=== PATIENT | female | born 1950 | race Caucasian/White ===

== ENCOUNTER 2017-11-22 06:20 | Emergency (ER) | payer OTHER ==
[2017-11-22 06:20] VITALS: BP 135/63; PULSE 85; RESP 16; TEMP 98; O2SAT 100
[~2017-11-22 06:20] MED LIST: ANAS1 PO; CYCL-36 PO; TAB-TAB PO; TRAM50 PO
[2017-11-22] MEDS ORDERED: AMLO2.5T PO (06:40)
[2017-11-22] MEDS ORDERED: ADVA100A INH (06:40)
[2017-11-22] MEDS ORDERED: VENTAER INH (06:40)
[2017-11-22] MEDS ORDERED: ONDANSETRON HCL 4 MG/2 ML VIAL ONE (06:42)
[2017-11-22] MEDS ORDERED: SODIUM CHLOR 0.9% 1000 ML INJ 1,000 ML IV ONE (07:00)
[2017-11-22] MEDS ORDERED: ONDANSETRON HCL 4 MG/2 ML VIAL IV PUSH ONE (07:00)
[2017-11-22 07:09] LABS: AUTOMATED NEUTROPHIL # 7.7 TH/MM3 (1.8-7.7); BASOPHIL % 0.3 % (0.0-2.0); EOSINOPHIL # 0.1 TH/MM3 (0-0.4); EOSINOPHIL % 0.7 % (0.0-4.0); HEMATOCRIT 42.4 % (35.0-46.0); HEMOGLOBIN 14.8 GM/DL (11.6-15.3); LYMPH % 4.4 % (9.0-44.0); LYMPHOCYTE # 0.4 TH/MM3 (1.0-4.8); MEAN CELL VOLUME 91.6 FL (80.0-100.0); MEAN CORPUSCULAR HEMOGLOBIN 32.1 PG (27.0-34.0); MEAN PLATELET VOLUME 8.4 FL (7.0-11.0); MONO % 4.8 % (0.0-8.0); MONOCYTE # 0.4 TH/MM3 (0-0.9); NEUT % 89.8 % (16.0-70.0); PLATELET COUNT 224 TH/MM3 (150-450); RED BLOOD COUNT 4.63 MIL/MM3 (4.00-5.30); WHITE BLOOD COUNT 8.5 TH/MM3 (4.0-11.0)
[2017-11-22 07:28] LABS: ALBUMIN 4.1 GM/DL (3.4-5.0); AST (GOT) 27 U/L (15-37); BICARBONATE 25.1 MEQ/L (21.0-32.0); BLOOD UREA NITROGEN 15 MG/DL (7-18); CALCIUM 8.9 MG/DL (8.5-10.1); CHLORIDE 106 MEQ/L (98-107); CREATININE 0.78 MG/DL (0.50-1.00); GLOMERULAR FILTRATION RATE 73 ML/MIN (>89); GLUCOSE,RANDOM 128 MG/DL (74-106); SODIUM (NA) 139 MEQ/L (136-145)
[2017-11-22 07:30] VITALS: O2SAT 96
[2017-11-22 07:31] LABS: ALKALINE PHOSPHATASE 85 U/L (45-117); ALT (GPT) 29 U/L (10-53); TOTAL BILIRUBIN ADULT 0.9 MG/DL (0.2-1.0); TOTAL PROTEIN 8.5 GM/DL (6.4-8.2)
[2017-11-22 08:41] LABS: BILIRUBIN, URINE NEG (NEG); BLOOD, URINE NEG (NEG); GLUCOSE,URINE NEG (NEG); KETONE, URINE TRACE mg/dL (NEG); MUCUS URINE FEW /lpf (OCC); NITRITE,URINE NEG (NEG); PH, URINE 5.5 (5.0-8.5); SQUAMOUS EPITHELIAL CELL URINE <1 /hpf (0-5); URINE COLOR YELLOW (YELLW/STRAW); URINE LEUKOCYTE ESTERASE NEG (NEG)
[2017-11-22] MEDS ORDERED: DICYCLOMINE HCL 10 MG CAP PO ONE (09:00)
[2017-11-22] MEDS ORDERED: DICY10 PO (09:04)
--- NOTE | 2017-11-22 09:04 | PD ---
Physical Exam Narrative Patient signed out to me by Dr. Andersen. Please see her documentation for complete details. Briefly, patient is a 66 year old female who comes in complaining of nausea, vomiting, diarrhea that started this morning around 2AM. The last thing she ate was fish at a restaurant. Exam shows abdomen to be soft and nontender. Data Data Last Documented VS Vital Signs Date Time Temp Pulse Resp B/P (MAP) Pulse Ox O2 Delivery O2 Flow Rate FiO2 11/22/17 06:20 98.0 85 16 135/63 (87) 100 Room Air Orders Orders Ondansetron Inj (Zofran Inj) (11/22/17 06:42) Complete Blood Count With Diff (11/22/17 06:47) Comprehensive Metabolic Panel (11/22/17 06:47) Urinalysis - C+S If Indicated (11/22/17 06:47) Iv Access Insert/Monitor (11/22/17 06:47) Oxygen Administration (11/22/17 06:47) Oximetry (11/22/17 06:47) Lipase (11/22/17 06:47) Influenzae A/B Antigen (11/22/17 06:47) Ondansetron Inj (Zofran Inj) (11/22/17 07:00) Sodium Chlor 0.9% 1000 Ml Inj (Ns 1000 M (11/22/17 07:00) Dicyclomine (Bentyl) (11/22/17 09:00) Labs Laboratory Tests Test 11/22/17 06:56 11/22/17 08:20 White Blood Count 8.5 TH/MM3 Red Blood Count 4.63 MIL/MM3 Hemoglobin 14.8 GM/DL Hematocrit 42.4 % Mean Corpuscular Volume 91.6 FL Mean Corpuscular Hemoglobin 32.1 PG Mean Corpuscular Hemoglobin Concent 35.0 % Red Cell Distribution Width 13.0 % Platelet Count 224 TH/MM3 Mean Platelet Volume 8.4 FL Neutrophils (%) (Auto) 89.8 % Lymphocytes (%) (Auto) 4.4 % Monocytes (%) (Auto) 4.8 % Eosinophils (%) (Auto) 0.7 % Basophils (%) (Auto) 0.3 % Neutrophils # (Auto) 7.7 TH/MM3 Lymphocytes # (Auto) 0.4 TH/MM3 Monocytes # (Auto) 0.4 TH/MM3 Eosinophils # (Auto) 0.1 TH/MM3 Basophils # (Auto) 0.0 TH/MM3 CBC Comment DIFF FINAL Differential Comment Blood Urea Nitrogen 15 MG/DL Creatinine 0.78 MG/DL Random Glucose 128 MG/DL Total Protein 8.5 GM/DL Albumin 4.1 GM/DL Calcium Level 8.9 MG/DL Alkaline Phosphatase 85 U/L Aspartate Amino Transf (AST/SGOT) 27 U/L Alanine Aminotransferase (ALT/SGPT) 29 U/L Total Bilirubin 0.9 MG/DL Sodium Level 139 MEQ/L Potassium Level 4.0 MEQ/L Chloride Level 106 MEQ/L Carbon Dioxide Level 25.1 MEQ/L Anion Gap 8 MEQ/L Estimat Glomerular Filtration Rate 73 ML/MIN Lipase 174 U/L Urine Color YELLOW Urine Turbidity CLEAR Urine pH 5.5 Urine Specific [place] 1.017 Urine Protein NEG mg/dL Urine Glucose (UA) NEG mg/dL Urine Ketones TRACE mg/dL Urine Occult Blood NEG Urine Nitrite NEG Urine Bilirubin NEG Urine Urobilinogen LESS THAN 2.0 MG/DL Urine Leukocyte Esterase NEG Urine RBC 1 /hpf Urine WBC LESS THAN 1 /hpf Urine Squamous Epithelial Cells <1 /hpf Urine Mucus FEW /lpf Microscopic Urinalysis Comment CULT NOT INDICATED MDM Supervised Visit with NICHOLAS: No Narrative Course Patient is requesting something for cramping. She is feeling better after receiving fluids and Zofran. She is able to drink water without vomiting. Labs show no acute abnormalities. She will be discharged home with prescription for Bentyl. Advised to drink plenty of fluids. Advised to eat a bland diet if she is feeling hungry. Advised to return at any time for any worsening symptoms. Diagnosis Primary Impression: Nausea, vomiting and diarrhea Patient Instructions: Acute Nausea and Vomiting (ED), General Instructions Additional Instruction: Follow-up with your doctor. Drink plenty of fluids. Eat a bland diet if you are feeling hungry. Return to the ED as needed for any worsening symptoms. Scripts Dicyclomine (Bentyl) 10 Mg Cap 10 MG PO TID Y for Bowel Management for 5 Days, CAP 0 Refills Prov: Marielle Cohen MD 11/22/17 Disposition: DISCHARGE HOME Condition: Stable Marielle Cohen MD Nov 22, 2017 09:04
--- NOTE | 2017-12-04 22:04 | PD ---
HPI Chief Complaint: GI Complaint Time Seen by Provider: 07:00 Travel History International Travel<30 days: No Contact w/Intl Traveler<30days: No Traveled to known affect area: No History of Present Illness HPI 66-year-old female presents to the emergency department for evaluation of nausea vomiting diarrhea and crampy abdominal pain since 2 AM. Patient reports did eat fish last evening denies any other known dietary indiscretion well water ingestion or foreign travel. Patient does not report any hematemesis coffee-ground emesis melena or hematochezia. Patient is otherwise in fair health has prior history of anxiety breast cancer with left breast lumpectomy with radiation therapy anxiety GI issues and asthma. Patient had no fever or chills. Patient complains of ongoing nausea and multiple episodes of vomiting. Status post previous appendectomy. Pain is intermittent and crampy in nature 0/10-5/10 in intensity. No report of dysuria frequency urgency hematuria or flank pain. PFSH Past Medical History Narrative Medical Anxiety asthma GI issues left breast lumpectomy radiation therapy appendectomy tonsillectomy occasional alcohol use no tobacco use nursing notes reviewed Asthma: Yes Anxiety: Yes Cancer: Yes (BREAST) Gastrointestinal Disorders: Yes GERD: Yes Hiatal Hernia: Yes Radiation Therapy: Yes (LEFT BREAST) Menopausal: Yes Past Surgical History Appendectomy: Yes Genitourinary Surgery: Yes (LEFT BREAST LUMPECTOMY) Tonsillectomy: Yes Other Surgery: Yes (LEFT BREAST LUMPECTOMY) Social History Alcohol Use: Yes (WEEKENDS) Tobacco Use: No Substance Use: No Allergies-Medications (Allergen,Severity, Reaction): Coded Allergies: cephalexin (Unverified Allergy, Severe, HIVES, 11/22/17) epinephrine (Unverified Allergy, Severe, HEART PALPITATIONS, 11/22/17) Reported Meds & Prescriptions Reported Meds & Active Scripts Active Bentyl (Dicyclomine HCl) 10 Mg Cap 10 Mg PO TID PRN 5 Days Reported Amlodipine (Amlodipine Besylate) 2.5 Mg Tab 2.5 Mg PO DAILY Advair Diskus Inh (Fluticasone-Salmeterol Inh) 100-50 Mcg/Blist Aer 1 Puff INH BID Rinse mouth after use. Ventolin Hfa 18 GM Inh (Albuterol Sulfate) 90 Mcg/Act Aer 2 Puff INH Q4-6H PRN Review of Systems Except as stated in HPI: all other systems reviewed are Neg Physical Exam Narrative GENERAL: Well-developed well-nourished female no acute respiratory distress. SKIN: Warm and dry. HEAD: Normocephalic. EYES: No scleral icterus. No injection or drainage. NECK: Supple, trachea midline. No JVD or lymphadenopathy. CARDIOVASCULAR: Regular rate and rhythm without murmurs, gallops, or rubs. RESPIRATORY: Breath sounds equal bilaterally. No accessory muscle use. GASTROINTESTINAL: Abdomen soft, non-tender, nondistended. MUSCULOSKELETAL: No cyanosis, or edema. BACK: Nontender without obvious deformity. No CVA tenderness. Data Data Orders Orders Ondansetron Inj (Zofran Inj) (11/22/17 06:42) Complete Blood Count With Diff (11/22/17 06:47) Comprehensive Metabolic Panel (11/22/17 06:47) Urinalysis - C+S If Indicated (11/22/17 06:47) Iv Access Insert/Monitor (11/22/17 06:47) Oxygen Administration (11/22/17 06:47) Oximetry (11/22/17 06:47) Lipase (11/22/17 06:47) Influenzae A/B Antigen (11/22/17 06:47) Ondansetron Inj (Zofran Inj) (11/22/17 07:00) Sodium Chlor 0.9% 1000 Ml Inj (Ns 1000 M (11/22/17 07:00) Dicyclomine (Bentyl) (11/22/17 09:00) Ed Discharge Order (11/22/17 09:04) Labs Laboratory Tests Test 11/22/17 06:56 11/22/17 08:20 White Blood Count 8.5 TH/MM3 Red Blood Count 4.63 MIL/MM3 Hemoglobin 14.8 GM/DL Hematocrit 42.4 % Mean Corpuscular Volume 91.6 FL Mean Corpuscular Hemoglobin 32.1 PG Mean Corpuscular Hemoglobin Concent 35.0 % Red Cell Distribution Width 13.0 % Platelet Count 224 TH/MM3 Mean Platelet Volume 8.4 FL Neutrophils (%) (Auto) 89.8 % Lymphocytes (%) (Auto) 4.4 % Monocytes (%) (Auto) 4.8 % Eosinophils (%) (Auto) 0.7 % Basophils (%) (Auto) 0.3 % Neutrophils # (Auto) 7.7 TH/MM3 Lymphocytes # (Auto) 0.4 TH/MM3 Monocytes # (Auto) 0.4 TH/MM3 Eosinophils # (Auto) 0.1 TH/MM3 Basophils # (Auto) 0.0 TH/MM3 CBC Comment DIFF FINAL Differential Comment Blood Urea Nitrogen 15 MG/DL Creatinine 0.78 MG/DL Random Glucose 128 MG/DL Total Protein 8.5 GM/DL Albumin 4.1 GM/DL Calcium Level 8.9 MG/DL Alkaline Phosphatase 85 U/L Aspartate Amino Transf (AST/SGOT) 27 U/L Alanine Aminotransferase (ALT/SGPT) 29 U/L Total Bilirubin 0.9 MG/DL Sodium Level 139 MEQ/L Potassium Level 4.0 MEQ/L Chloride Level 106 MEQ/L Carbon Dioxide Level 25.1 MEQ/L Anion Gap 8 MEQ/L Estimat Glomerular Filtration Rate 73 ML/MIN Lipase 174 U/L Urine Color YELLOW Urine Turbidity CLEAR Urine pH 5.5 Urine Specific [place] 1.017 Urine Protein NEG mg/dL Urine Glucose (UA) NEG mg/dL Urine Ketones TRACE mg/dL Urine Occult Blood NEG Urine Nitrite NEG Urine Bilirubin NEG Urine Urobilinogen LESS THAN 2.0 MG/DL Urine Leukocyte Esterase NEG Urine RBC 1 /hpf Urine WBC LESS THAN 1 /hpf Urine Squamous Epithelial Cells <1 /hpf Urine Mucus FEW /lpf Microscopic Urinalysis Comment CULT NOT INDICATED MDM Medical Decision Making Medical Screen Exam Complete: Yes Emergency Medical Condition: Yes Medical Record Reviewed: Yes Differential Diagnosis Gastritis, gastroenteritis, foodborne illness, dehydration, electrolyte disturbance, colitis, enteritis Narrative Course IV access obtained specimens collected and sent for resulting patient given bolus of normal saline and Zofran for complaint of nausea vomiting. Patient's care signed over oncoming physician Dr. Cohen Diagnosis Primary Impression: Nausea, vomiting and diarrhea Patient Instructions: General Instructions, Dicyclomine (By mouth), Acute Nausea and Vomiting (ED) Departure Forms: Tests/Procedures Additional Instructions: Follow-up with your doctor. Drink plenty of fluids. Eat a bland diet if you are feeling hungry. Return to the ED as needed for any worsening symptoms. Scripts Dicyclomine (Bentyl) 10 Mg Cap 10 MG PO TID Y for Bowel Management for 5 Days, CAP 0 Refills Prov: Marielle Cohen MD 11/22/17 Disposition: 01 DISCHARGE HOME Condition: Stable Mercedes Andersen MD Dec 04, 2017 22:04
== END 2017-11-22 09:48 | disposition home or self-care (01) ==
LOC: NEPC 06:20
DX: R11.2 Nausea with vomiting, unspecified (principal); R19.7 Diarrhea, unspecified; J45.909 Unspecified asthma, uncomplicated; R10.9 Unspecified abdominal pain
CPT/HCPCS: 80053; 81001; 83690; 85025; 87804; 96361; 96374; 99284; J2405; J7030

== ENCOUNTER 2018-01-28 22:18 | Observation (INO) | payer OTHER ==
[~2018-01-28 22:18] MED LIST changes: +ADVA100A INH; +AMLO2.5T PO; -ANAS1 PO; -CYCL-36 PO; +DICY10 PO; -TAB-TAB PO; -TRAM50 PO; +VENTAER INH
[2018-01-28 22:20] VITALS: BP 196/94; PULSE 84; RESP 18; TEMP 97.8; O2SAT 99
[2018-01-28 22:39] VITALS: BP 182/82; PULSE 78; RESP 16; O2SAT 98
[2018-01-28] MEDS ORDERED: GLUC100013 (22:39)
[2018-01-28 23:00] VITALS: BP 164/79; PULSE 78; RESP 16; O2SAT 100
[2018-01-28 23:20] LABS: AUTOMATED NEUTROPHIL # 3.2 TH/MM3 (1.8-7.7); BASOPHIL # 0.1 TH/MM3 (0-0.2); BASOPHIL % 1.1 % (0.0-2.0); EOSINOPHIL # 0.3 TH/MM3 (0-0.4); EOSINOPHIL % 4.1 % (0.0-4.0); HEMATOCRIT 37.2 % (35.0-46.0); HEMOGLOBIN 12.8 GM/DL (11.6-15.3); LYMPH % 33.6 % (9.0-44.0); LYMPHOCYTE # 2.2 TH/MM3 (1.0-4.8); MEAN CELL VOLUME 90.7 FL (80.0-100.0); MEAN CORPUSCULAR HEMOGLOBIN 31.1 PG (27.0-34.0); MEAN CORPUSCULAR HGB CONC 34.3 % (32.0-36.0); MEAN PLATELET VOLUME 9.2 FL (7.0-11.0); MONOCYTE # 0.8 TH/MM3 (0-0.9); NEUT % 49.2 % (16.0-70.0); PLATELET COUNT 203 TH/MM3 (150-450); RED BLOOD COUNT 4.11 MIL/MM3 (4.00-5.30); RED CELL DISTRIBUTION WIDTH 12.8 % (11.6-17.2); WHITE BLOOD COUNT 6.5 TH/MM3 (4.0-11.0)
[2018-01-28 23:32] LABS: BILIRUBIN, URINE NEG (NEG); BLOOD, URINE NEG (NEG); GLUCOSE,URINE NEG (NEG); KETONE, URINE NEG (NEG); NITRITE,URINE NEG (NEG); SQUAMOUS EPITHELIAL CELL URINE <1 /hpf (0-5); URINE COLOR COLORLESS (YELLW/STRAW); URINE LEUKOCYTE ESTERASE NEG (NEG)
--- NOTE | 2018-01-28 23:38 | RADRPT ---
EXAM DATE/TIME: 01/28/2018 23:15 [facility] COMPARISON: No previous studies available for comparison. INDICATIONS : Chest pain. MEDICAL HISTORY : Carcinoma, lung. SURGICAL HISTORY : Lobectomy. ENCOUNTER: Initial ACUITY: 1 day PAIN SCORE: 4/10 LOCATION: Bilateral chest FINDINGS: A single view of the chest demonstrates elevation of the right hemidiaphragm. Linear atelectasis/scar ring in the right upper lung. Lungs are otherwise clear with no acute infiltrate or effusion. Heart s ize is normal. Osseous structures are intact. CONCLUSION: 1. Linear atelectasis/scarring in the right upper lung. Lungs otherwise clear. 2. Heart size is normal Ernie Cardona MD on January 28, 2018 at 23:35 Board Certified Radiologist. This report was verified electronically.
[2018-01-29 00:01] LABS: ALBUMIN 3.8 GM/DL (3.4-5.0); ALKALINE PHOSPHATASE 86 U/L (45-117); ALT (GPT) 25 U/L (10-53); AST (GOT) 30 U/L (15-37); BICARBONATE 26.8 MEQ/L (21.0-32.0); BLOOD UREA NITROGEN 18 MG/DL (7-18); CHLORIDE 108 MEQ/L (98-107); CREATININE 0.82 MG/DL (0.50-1.00); GLOMERULAR FILTRATION RATE 69 ML/MIN (>89); GLUCOSE,RANDOM 113 MG/DL (74-106); SODIUM (NA) 143 MEQ/L (136-145); TOTAL BILIRUBIN ADULT 0.2 MG/DL (0.2-1.0); TOTAL PROTEIN 7.4 GM/DL (6.4-8.2); TROPONIN I LESS THAN 0.02 NG/ML (0.02-0.05)
[2018-01-29] MEDS ORDERED: POTASSIUM CHLORIDE 20 MEQ CONTROLLED RELEASE TAB PO ONE (00:30)
[2018-01-29] MEDS ORDERED: ACETAMINOPHEN 325 MG TAB PO PRN (00:45)
[2018-01-29] MEDS ORDERED: SENNOSIDES 8.6 MG TAB PO PRN (00:45)
[2018-01-29] MEDS ORDERED: NALOXONE HCL 0.4 MG/ML AMP IV PUSH PRN (00:45)
[2018-01-29] MEDS ORDERED: MAGNESIUM HYDROXIDE SUSP 30 ML CUP PO PRN (00:45)
[2018-01-29] MEDS ORDERED: LACTULOSE SYRUP 20 GM/30 ML CUP PO PRN (00:45)
[2018-01-29] MEDS ORDERED: DICYCLOMINE HCL 10 MG CAP PO PRN (00:45)
[2018-01-29] MEDS ORDERED: SODIUM CHLORIDE 0.9% FLUSH 10 ML FLUSH IV FLUSH PRN (00:45)
[2018-01-29] MEDS ORDERED: ALBUTEROL SULFATE 90 MCG/ACT HFA 8 GM INHALER INH PRN (00:45)
[2018-01-29] MEDS ORDERED: BISACODYL 10 MG SUPP RECTAL PRN (00:45)
--- NOTE | 2018-01-29 00:50 | PD ---
HPI Chief Complaint: Respiratory Symptoms Time Seen by Provider: 23:01 Travel History International Travel<30 days: No Contact w/Intl Traveler<30days: No Traveled to known affect area: No History of Present Illness HPI Patient presents to the emergency department complaining of fluttering in her chest. States that she has had this intermittently previously and go away however this week became more intense. Palpitations have been intermittent but she denies them currently. No chest pain but she does have shortness of breath. States that she also has a dry cough and is getting over respiratory infection for which she was placed on a Z-Jaswant approximately 2 weeks ago denies fever, chills, lower extremity edema, or dysuria PFSH Past Medical History Asthma: Yes Anxiety: Yes Cancer: Yes (BREAST) COPD: Yes Diminished Hearing: No Gastrointestinal Disorders: Yes GERD: Yes Hiatal Hernia: Yes Hypertension: Yes Immunizations Current: Yes Radiation Therapy: Yes (LEFT BREAST) ?: Not Menopausal: Yes Past Surgical History Appendectomy: Yes Genitourinary Surgery: Yes (LEFT BREAST LUMPECTOMY) Tonsillectomy: Yes Other Surgery: Yes (LEFT BREAST LUMPECTOMY) Social History Alcohol Use: Yes Tobacco Use: No Substance Use: No Allergies-Medications (Allergen,Severity, Reaction): Coded Allergies: cephalexin (Unverified Allergy, Severe, HIVES, 01/28/18) epinephrine (Unverified Allergy, Severe, HEART PALPITATIONS, 01/28/18) Reported Meds & Prescriptions Reported Meds & Active Scripts Active Bentyl (Dicyclomine HCl) 10 Mg Cap 10 Mg PO TID PRN 5 Days Reported Glucosamine (Glucosamine Sulfate) 1,000 Mg Cap 1,000 Mg DAILY Amlodipine (Amlodipine Besylate) 2.5 Mg Tab 2.5 Mg PO DAILY Advair Diskus Inh (Fluticasone-Salmeterol Inh) 100-50 Mcg/Blist Aer 1 Puff INH BID Rinse mouth after use. Ventolin Hfa 18 GM Inh (Albuterol Sulfate) 90 Mcg/Act Aer 2 Puff INH Q4-6H PRN Review of Systems Except as stated in HPI: all other systems reviewed are Neg Physical Exam Narrative GENERAL: No acute distress. SKIN: Focused skin assessment warm/dry. HEAD: Atraumatic. Normocephalic. EYES: Extraocular muscles intact bilaterally no scleral icterus. No injection or drainage. ENT: No nasal bleeding or discharge. Mucous membranes pink and moist. NECK: Trachea midline. No JVD. CARDIOVASCULAR: Regular rate and rhythm. No murmur appreciated. RESPIRATORY: No accessory muscle use. Clear to auscultation. Breath sounds equal bilaterally. GASTROINTESTINAL: Abdomen soft, non-tender, nondistended. MUSCULOSKELETAL: No obvious deformities. No clubbing. No cyanosis. No edema. NEUROLOGICAL: Awake and alert. No obvious cranial nerve deficits. Motor grossly within normal limits. Normal speech. PSYCHIATRIC: Appropriate mood and affect; insight and judgment normal. Data Data Last Documented VS Vital Signs Date Time Temp Pulse Resp B/P (MAP) Pulse Ox O2 Delivery O2 Flow Rate FiO2 01/28/18 23:00 78 16 164/79 (107) 100 Room Air 01/28/18 22:20 97.8 Orders Orders Complete Blood Count With Diff (01/28/18 23:07) Comprehensive Metabolic Panel (01/28/18 23:07) Creatine Kinase (Cpk) (01/28/18 23:07) Ckmb (Isoenzyme) Profile (01/28/18 23:07) Troponin I (01/28/18 23:07) Urinalysis - C+S If Indicated (01/28/18 23:07) Magnesium (Mg) (01/28/18 23:07) Thyroid Stimulating Hormone (01/28/18 23:07) Chest, Single Ap (01/28/18 23:07) CKMB (01/28/18 23:12) CKMB% (01/28/18 23:12) Potassium Chloride (Kcl) (01/29/18 00:30) Free Thyroxine (T4) (01/29/18 00:17) Free T3 (01/29/18 00:17) Admit Order (Ed Use Only) (01/29/18 00:37) Albuterol Hfa Inh (Proair Hfa Inh) (01/29/18 00:45) Amlodipine (Norvasc) (01/29/18 09:00) Dicyclomine (Bentyl) (01/29/18 00:45) (Nf) Fluticasone-Salmeterol Inh (Advair (01/29/18 09:00) Basic Metabolic Panel (Bmp) (01/29/18 06:00) Labs Laboratory Tests Test 01/28/18 23:12 01/28/18 23:19 White Blood Count 6.5 TH/MM3 Red Blood Count 4.11 MIL/MM3 Hemoglobin 12.8 GM/DL Hematocrit 37.2 % Mean Corpuscular Volume 90.7 FL Mean Corpuscular Hemoglobin 31.1 PG Mean Corpuscular Hemoglobin Concent 34.3 % Red Cell Distribution Width 12.8 % Platelet Count 203 TH/MM3 Mean Platelet Volume 9.2 FL Neutrophils (%) (Auto) 49.2 % Lymphocytes (%) (Auto) 33.6 % Monocytes (%) (Auto) 12.0 % Eosinophils (%) (Auto) 4.1 % Basophils (%) (Auto) 1.1 % Neutrophils # (Auto) 3.2 TH/MM3 Lymphocytes # (Auto) 2.2 TH/MM3 Monocytes # (Auto) 0.8 TH/MM3 Eosinophils # (Auto) 0.3 TH/MM3 Basophils # (Auto) 0.1 TH/MM3 CBC Comment DIFF FINAL Differential Comment Blood Urea Nitrogen 18 MG/DL Creatinine 0.82 MG/DL Random Glucose 113 MG/DL Total Protein 7.4 GM/DL Albumin 3.8 GM/DL Calcium Level 9.0 MG/DL Magnesium Level 2.0 MG/DL Alkaline Phosphatase 86 U/L Aspartate Amino Transf (AST/SGOT) 30 U/L Alanine Aminotransferase (ALT/SGPT) 25 U/L Total Bilirubin 0.2 MG/DL Sodium Level 143 MEQ/L Potassium Level 3.2 MEQ/L Chloride Level 108 MEQ/L Carbon Dioxide Level 26.8 MEQ/L Anion Gap 8 MEQ/L Estimat Glomerular Filtration Rate 69 ML/MIN Total Creatine Kinase 185 U/L Creatine Kinase MB 3.4 NG/ML Troponin I LESS THAN 0.02 NG/ML Thyroid Stimulating Hormone 3rd Gen 5.860 uIU/ML Urine Color COLORLESS Urine Turbidity CLEAR Urine pH 6.0 Urine Specific [place] 1.002 Urine Protein NEG mg/dL Urine Glucose (UA) NEG mg/dL Urine Ketones NEG mg/dL Urine Occult Blood NEG Urine Nitrite NEG Urine Bilirubin NEG Urine Urobilinogen LESS THAN 2.0 MG/DL Urine Leukocyte Esterase NEG Urine WBC LESS THAN 1 /hpf Urine Squamous Epithelial Cells <1 /hpf Microscopic Urinalysis Comment CULT NOT INDICATED MDM Medical Decision Making Medical Screen Exam Complete: Yes Emergency Medical Condition: Yes Interpretation(s) Labs: Decreased potassium, elevated TSH, free T4 and T3 pending ECG: SR, rate 80, Left axis deviation, slight STD in V5, V6 Last Impressions Chest X-Ray 01/28/18 0311 Signed Impressions: Service Date/Time: Friday, January 28, 2018 23:15 - CONCLUSION: 1. Linear atelectasis/scarring in the right upper lung. Lungs otherwise clear. 2. Heart size is normal Ernie Cardona MD Differential Diagnosis Arrhythmia, electrolyte abnormality, thyroid abnormality Narrative Course Patient presents to the emergency department complaining of intermittent palpitations. Patient's workup was positive for hypokalemia, which was repleted with 40 mEq p.o. Her TSH was found to be elevated and she has a free T3 and free T4 pending. The admitting team will follow up on those results. Will admit patient for observation to repeat potassium in the morning, 24 hour telemetry monitoring to assess for possible arrhythmia causing the palpitations , and follow-up on thyroid labs. Diagnosis Primary Impression: Hypokalemia Additional Impression: Intermittent palpitations Admitting Information Admitting Physician Requests: Observation Condition: Stable Dolores Díaz MD January 29, 2018 00:50
[2018-01-29 00:52] LABS: FREE T3 2.5 PG/ML (2.18-3.98); FREE T4 0.85 NG/DL (0.76-1.46)
[2018-01-29] MEDS ORDERED: ENALAPRILAT 1.25 MG/ML VIAL IV PUSH PRN (01:00)
[2018-01-29] MEDS ORDERED: PILL SPLITTER OTHER PRN (01:00)
[2018-01-29] MEDS: D5-1/2 NS + KCL 20 MEQ INJ 1,000 ML IV SCH ×2 (01:17→14:20)
[2018-01-29 04:00] VITALS: BP 134/61; PULSE 72; RESP 16; O2SAT 99
[2018-01-29 05:24] LABS: BICARBONATE 26.7 MEQ/L (21.0-32.0); CALCIUM 8.8 MG/DL (8.5-10.1); CREATININE 0.74 MG/DL (0.50-1.00)
[2018-01-29 07:43] VITALS: BP 139/79; PULSE 73; RESP 16; TEMP 97.7; O2SAT 98
[2018-01-29] MEDS ORDERED: amLODIPine BESYLATE 5 MG TAB PO SCH (09:00)
[2018-01-29] MEDS ORDERED: SODIUM CHLORIDE 0.9% FLUSH 10 ML FLUSH IV FLUSH SCH (09:00)
[2018-01-29] MEDS ORDERED: NON-FORMULARY DRUG (Fluticasone-Salmeterol Inh (Advair Diskus Inh) 1 PUFF) INH SCH (09:00)
[2018-01-29] MEDS ORDERED: BUDESONIDE-FORMOTEROL 80/4.5 MCG INHALER INH SCH (09:00)
[2018-01-29] MEDS ORDERED: DOCUSATE SODIUM 50 MG/SENNA 8.6 MG TAB PO SCH (09:00)
--- NOTE | 2018-01-29 09:21 | HHI.HP ---
HPI Service [facility] Hospitalists Primary Care Physician Kar Morris, DO Admission Diagnosis hypokalemia, hypertension Chief Complaint: Palpitations Travel History International Travel<30 Days: No Contact w/Intl Traveler <30 Da: No Traveled to Known Affected Are: No History of Present Illness Mrs. Escobar is a pleasant 67 y/o WF with HTN, GERD, COPD, and hx of breast cancer. She presented [place] [facility] [place] with complaints of palpitations. The palpitations started 3-4 days ago, and are described as a fluttering sensation in her mid chest which has been intermittent and last a few seconds and then resolves but unlike in the past this has been occurring more frequently. In the past it would last a few seconds and then resolve and not return for some time. No previous cardiac issues. Pt reports that she feels this may be related to anxiety. Her job has been more stressful lately. 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 She has had to take on more responsibilities when the teacher has been out. In the past the pt has had anxiety attacks and has used Xanax with relief. Pt recently traveled to [place] for a in November and she developed an URI with cough and was given a Z- alla. The cough improved but hasn't completely resolved. She does have some sinus congestion today. Denies any chest pain or SOB. She denies any changes in appetite, N/V, abd pain, or dysphagia. She has had some acid reflux more recently but feels that this was related to taking Aleve for hip pain once daily more recently. She uses Omeprazole as needed at home. Pt has not had any abnormality noted on her telemetry from overnight. Her EKG in the ED noted sinus rhythm with rate 80, left axis deviation, slight ST depression in V5, V6. One set of CE were negative. Her potassium was noted to be low and was replaced. Her TSH was elevated but her free T4 and T3 were WNL. Pt feels that the palpitations have improved but have not resolved. She is requesting Xanax. Review of Systems Constitutional: DENIES: Fever, Chills, Dizziness, Change in appetite, Night Sweats Eyes: DENIES: Vision loss Ears, nose, mouth, throat: COMPLAINS OF: Nasal discharge Respiratory: COMPLAINS OF: Cough, DENIES: Wheezing, Sputum production, Shortness of breath Cardiovascular: COMPLAINS OF: Palpitations, DENIES: Chest pain, Dyspnea on Exertion, Lower Extremity Edema Gastrointestinal: COMPLAINS OF: Reflux, DENIES: Abdominal pain, Nausea, Vomiting, Difficulty Swallowing Musculoskeletal: DENIES: Back pain, Neck pain Integumentary: DENIES: Rash Neurologic: DENIES: Headache Psychiatric: DENIES: Confusion Past Family Social History Past Medical History Hx of breast cancer COPD Hx of tobacco use Past Surgical History Left breast lumpectomy and XRT almost 10 years ago Appendectomy Tonsillectomy EGD with ablation for Barretts esophagus Reported Medications Glucosamine 1,000 Mg DAILY Amlodipine 2.5 Mg PO DAILY Advair Diskus Inh 100-50 Mcg/Blist Aer 1 Puff INH BID Ventolin Hfa 18 GM Inh 90 Mcg/Act Aer 2 Puff INH Q4-6H PRN Allergies: Coded Allergies: cephalexin (Unverified Allergy, Severe, HIVES, 01/28/18) epinephrine (Unverified Allergy, Severe, HEART PALPITATIONS, 01/28/18) Family History Father from CAD at age 63 Mother at age 83 from dementia. She had hx of breast cancer Social History Hx of tobacco use, started at age [age] y/o smoked 1ppd Social alcohol use Pt is , three children, one daughter lives locally and two sons live out of state Pt works as a assistant controller at [employer] Physical Exam Vital Signs Vital Signs Date Time Temp Pulse Resp B/P (MAP) Pulse Ox O2 Delivery O2 Flow Rate FiO2 01/29/18 07:43 97.7 73 16 139/79 (99) 98 Room Air 01/29/18 04:00 72 16 134/61 (85) 99 Room Air 01/28/18 23:00 78 16 164/79 (107) 100 Room Air 01/28/18 22:39 78 16 182/82 (115) 98 Room Air 01/28/18 22:20 97.8 84 18 196/94 (128) 99 Physical Exam GENERAL: This is a well-nourished, well-developed patient, in no apparent distress. SKIN: No rashes, ecchymoses or lesions. Cool and dry. HEENT: Atraumatic. Normocephalic. No temporal or scalp tenderness. No scleral icterus. Airway patent. NECK: Trachea midline, supple, nontender. CARDIO: Regular. RESP: CTA bilaterally. No wheezes, rales, or rhonchi. ABD: +BS, soft, non-tender, nondistended. No guarding. EXT: Extremities without clubbing, cyanosis, or edema. NEURO: Awake and alert. Motor and sensory grossly within normal limits. Normal speech. Laboratory Laboratory Tests Test 01/28/18 23:12 01/28/18 23:19 01/29/18 04:42 White Blood Count 6.5 Red Blood Count 4.11 Hemoglobin 12.8 Hematocrit 37.2 Mean Corpuscular Volume 90.7 Mean Corpuscular Hemoglobin 31.1 Mean Corpuscular Hemoglobin Concent 34.3 Red Cell Distribution Width 12.8 Platelet Count 203 Mean Platelet Volume 9.2 Neutrophils (%) (Auto) 49.2 Lymphocytes (%) (Auto) 33.6 Monocytes (%) (Auto) 12.0 Eosinophils (%) (Auto) 4.1 Basophils (%) (Auto) 1.1 Neutrophils # (Auto) 3.2 Lymphocytes # (Auto) 2.2 Monocytes # (Auto) 0.8 Eosinophils # (Auto) 0.3 Basophils # (Auto) 0.1 CBC Comment DIFF FINAL Differential Comment Blood Urea Nitrogen 18 13 Creatinine 0.82 0.74 Random Glucose 113 121 Total Protein 7.4 Albumin 3.8 Calcium Level 9.0 8.8 Magnesium Level 2.0 Alkaline Phosphatase 86 Aspartate Amino Transf (AST/SGOT) 30 Alanine Aminotransferase (ALT/SGPT) 25 Total Bilirubin 0.2 Sodium Level 143 145 Potassium Level 3.2 3.9 Chloride Level 108 111 Carbon Dioxide Level 26.8 26.7 Anion Gap 8 7 Estimat Glomerular Filtration Rate 69 78 Total Creatine Kinase 185 Creatine Kinase MB 3.4 Troponin I LESS THAN 0.02 Free Thyroxine 0.85 Free Triiodothyronine (T3) pg/dL 2.50 Thyroid Stimulating Hormone 3rd Gen 5.860 Urine Color COLORLESS Urine Turbidity CLEAR Urine pH 6.0 Urine Specific [place] 1.002 Urine Protein NEG Urine Glucose (UA) NEG Urine Ketones NEG Urine Occult Blood NEG Urine Nitrite NEG Urine Bilirubin NEG Urine Urobilinogen LESS THAN 2.0 Urine Leukocyte Esterase NEG Urine WBC LESS THAN 1 Urine Squamous Epithelial Cells <1 Microscopic Urinalysis Comment CULT NOT INDICATED Result Diagram: 01/28/18 9122 01/29/18 0442 Imaging Last Impressions Chest X-Ray 01/28/18 [id number] Signed Impressions: Service Date/Time: Sunday, January 28, 2018 23:15 - CONCLUSION: 1. Linear atelectasis/scarring in the right upper lung. Lungs otherwise clear. 2. Heart size is normal MD Christopher Koch VTE Risk Assessment Capmilkai VTE Risk Assessment: Mod/High Risk (score >= 2) Caprini Risk Assessment Model Point Value = 1 Point Value = 2 Point Value = 3 Point Value = 5 Age 41-60 Minor surgery BMI > 25 kg/m2 Swollen legs Varicose veins or History of unexplained or recurrent spontaneous Oral contraceptives or hormone replacement Sepsis (< 1 month) Serious lung disease, including pneumonia (< 1 month) Abnormal pulmonary function Acute myocardial infarction Congestive heart failure (< 1 month) History of inflammatory bowel disease Medical patient at bed rest Age 61-74 Arthroscopic surgery Major open surgery (> 45 min) Laparoscopic surgery (> 45 min) Malignancy Confined to bed (> 72 hours) Immobilizing plaster cast Central venous access Age >= 75 History of VTE Family history of VTE Factor V Leiden Prothrombin [id number] Lupus anticoagulant Anticardiolipin antibodies Elevated serum homocysteine Heparin-induced thrombocytopenia Other congenital or acquired thrombophilia Stroke (< 1 month) Elective arthroplasty Hip, pelvis, or leg fracture Acute spinal cord injury (< 1 month) Prophylaxis Regimen Total Risk Factor Score Risk Level Prophylaxis Regimen 0-1 Low Early ambulation 2 Moderate Order ONE of the following: *Sequential Compression Device (SCD) *Heparin 5000 units SQ BID 3-4 Higher Order ONE of the following medications: *Heparin 5000 units SQ TID *Enoxaparin/Lovenox 40 mg SQ daily (WT < 150 kg, CrCl > 30 mL/min) *Enoxaparin/Lovenox 30 mg SQ daily (WT < 150 kg, CrCl > 10-29 mL/min) *Enoxaparin/Lovenox 30 mg SQ BID (WT < 150 kg, CrCl > 30 mL/min) AND/OR *Sequential Compression Device (SCD) 5 or more Highest Order ONE of the following medications: *Heparin 5000 units SQ TID (Preferred with Epidurals) *Enoxaparin/Lovenox 40 mg SQ daily (WT < 150 kg, CrCl > 30 mL/min) *Enoxaparin/Lovenox 30 mg SQ daily (WT < 150 kg, CrCl > 10-29 mL/min) *Enoxaparin/Lovenox 30 mg SQ BID (WT < 150 kg, CrCl > 30 mL/min) AND *Sequential Compression Device (SCD) Assessment and Plan Problem List: (1) Intermittent palpitations ICD Codes: R00.2 - Palpitations Status: Acute Plan: Palpitations, possibly anxiety related vs. occult dysrhythmia vs. other HTN Hx of tobacco use - Pt is a 67 y/o WF with HTN, GERD, COPD, and hx of breast cancer. - She presented [place] [facility] [place] with complaints of palpitations. The palpitations started 3-4 days ago, and are described as a fluttering sensation in her mid chest which has been intermittent and last a few seconds and then resolves but unlike in the past this has been occurring more frequently. - Pt has been under increased stress lately and feels this may be related to anxiety. - Pt has not had any abnormality noted on her telemetry from overnight. - Her EKG in the ED noted sinus rhythm with rate 80, left axis deviation, slight ST depression in V5, V6. - One set of CE were negative. - Her potassium was noted to be low and was replaced and corrected appropriately. - Her TSH was elevated but her free T4 and T3 were WNL. - Give a dose of Xanax 0.25 once now and then PRN - Holter Monitor - 2D echo - Pts palpitations are most likely anxiety related but cannot rule out completely underlying cardiac dysrhythmia vs. other. She has hx of HTN and many years to tobacco use. Her father in his 60's of CAD. - Repeat CE and EKG this morning. - Cont. Norvasc at home dose - Supportive care - Anticipate d/c home later today COPD - Home meds continued - Duoneb PRN GERD - Pt refused PPI Hx of breast cancer ADDENDUM: - Upon re-evaluation in the afternoon, the pt felt that her palpitations resolved with the Xanax. - She had Holter monitor placed prior to discharge and this will need to be followed up on by her PCP. - She will be prescribed a small prescription for Xanax 0.25mg BID PRN - Pt will continue her home meds - She will need a recheck of her BMP in 1 week with results to her PCP - Pt will need a followup with her PCP, Dr. Chavez in 1 week. (2) Hypokalemia ICD Codes: E87.6 - Hypokalemia Status: Acute (3) HTN (hypertension) ICD Codes: I10 - Essential (primary) hypertension Status: Chronic (4) GERD (gastroesophageal reflux disease) ICD Codes: K21.9 - Gastro-esophageal reflux disease without esophagitis Status: Chronic (5) COPD (chronic obstructive pulmonary disease) ICD Codes: J44.9 - Chronic obstructive pulmonary disease, unspecified Status: Chronic Ashley Sanchez January 29, 2018 09:21
[2018-01-29] MEDS ORDERED: RESP: ALBUTEROL 2.5 MG/IPRATROPIUM 0.5 MG NEB (PRN) NEB (09:30)
[2018-01-29] MEDS ORDERED: RESP: ALBUTEROL 2.5 MG/IPRATROPIUM 0.5 MG NEB (SCH) NEB ONE (09:30)
[2018-01-29] MEDS ORDERED: ALPRAZolam 0.25 MG TAB PO ONE (09:45)
[2018-01-29] MEDS ORDERED: LORATADINE 10 MG TAB PO ONE (09:45)
[2018-01-29 10:20] VITALS: BP 181/88; PULSE 75; RESP 20; TEMP 98.3; O2SAT 96
[2018-01-29 14:12] VITALS: BP 144/74; PULSE 72; RESP 16; TEMP 98.4; O2SAT 96
--- NOTE | 2018-01-29 14:26 | EKG ---
Date Performed: 01/28/2018 Time Performed: 22:33:50 PTAGE: 67 years EKG: Sinus rhythm BORDERLINE LEFT AXIS DEVIATION BORDERLINE ECG Since the PREVIOUS TRACING , no significant change noted PREVIOUS TRACING DOCTOR: Melissa Wall Interpretating Date/Time 01/29/2018 14:20:32
--- NOTE | 2018-01-29 15:29 | HHI.DCPOC ---
Discharge Care Plan Diagnosis: (1) COPD (chronic obstructive pulmonary disease) (2) GERD (gastroesophageal reflux disease) (3) HTN (hypertension) (4) Intermittent palpitations (5) Hypokalemia Goals to Promote Your Health - Patient had Holter monitor placed prior to discharge and the results will need to be followed up on by her PCP. - She will be prescribed a small prescription for Xanax 0.25mg twice daily as needed - Patient will continue her home meds - She will need a recheck of her BMP in 1 week with results to her PCP. This can be drawn at any [facility] lab - Pt will need a followup with her PCP, Dr. Chavez in 1 week. Call for an appt. Directions to Meet Your Goals Take your medications as prescribed Follow your dietary instruction Follow activity as directed Keep your appointments as scheduled Take your immunizations and boosters as scheduled If your symptoms worsen call your PCP, if no PCP go to Urgent Care Center or Emergency Room Smoking is Dangerous to Your Health. Avoid second hand smoke Call the 24-hour hour crisis hotline for domestic abuse at Ashley Sanchez January 29, 2018 15:29
[2018-01-29] MEDS ORDERED: ALPR.25 PO (15:47)
[2018-01-29] MEDS ORDERED: ALPRAZolam 0.25 MG TAB PO PRN (17:00)
[2018-01-30] MEDS ORDERED: LORATADINE 10 MG TAB PO SCH (09:00)
--- NOTE | 2018-01-31 15:35 | HM ---
Date Performed: 01/29/2018 Time Performed: 13:44:00 HOOKUP DATE: 01/29/18 01:44:00 PM Alicia ANALYSIS START TIME: 01/29/2018 1:49:00 PM ANALYSIS END TIME: 01/30/2018 1:51:04 PM PATIENT AGE: 67 PATIENT HEIGHT PATIENT WEIGHT DRUG LIST PATIENT DIAGNOSIS: HYPOKALEMIA HYPERTENSION TEST NARRATIVE: The patient's average heart rate was 78 BPM. No episodes of tachycardia wer e noted. No episodes of bradycardia were noted. No pauses exceeding 2.0 seconds were noted. 1 ventricular ectopics, which represented < 1% of the total beat count, were noted. The highest vent ricular ectopic frequency occurred from 07:00 AM to 08:00 AM Fri. During this time 1 VE(s) occurred. Ventricular ectopics were observed as 1 isolated beat(s) only. No couplets or runs were noted. 2570 supraventricular ectopics, which represented 2% of the total beat count, were noted. The highe st supraventricular ectopic frequency occurred from 10:00 AM to 11:00 AM Fri. During this time 385 S VE(s) occurred. No episodes of ST depression (defined as -1.0 mm or more) were noted in channel [address] . No episodes of ST depression (defined as -1.0 mm or more) were noted in channel 2. No episodes of ST depression (defined as -1.0 mm or more) were noted in channel 3. TEST INTERPRETATION: 24 Hour Holter Monitor-Bobby Juarez Indications: Hypokalemia, Hyperte nsion Patient was monitored for 24 hours and 2 minutes. Patient had a minimum heart rate of 57 beats per minute, maximum heart rate of 121 beats per minute and an average heart rate of 78 beats per juana te. Notable for occassional PACs and PVCs, but no other atrial fibrillation or sustained arrhytmia. P ACs did occur in a bigeminal pattern breifly. No symptoms were reported or recorded. Signed by : Bobby Juarez
== END 2018-01-29 17:50 | disposition home or self-care (01) ==
LOC: NEPC 22:18 → NEDA 01-29 00:41 → NEDH 01-29 04:59 → NEDA 01-29 12:33 → NEPGCP 01-29 13:55
PROVIDERS: ADMIT Hospitalist; ATTEND Hospitalist
DX: R00.2 Palpitations (principal); I10 Essential (primary) hypertension; J44.9 Chronic obstructive pulmonary disease, unspecified; K21.9 Gastro-esophageal reflux disease without esophagitis; E87.6 Hypokalemia; Z87.891 Personal history of nicotine dependence; Z85.3 Personal history of malignant neoplasm of breast; Z82.49 Family history of ischemic heart disease and other diseases of the circulatory system
CPT/HCPCS: 71045; 80048; 80053; 81001; 82550; 82552; 83735; 84439; 84443; 84481; 84484; 85025; 93005; 93225; 93226; 96360; 96361; 99285; G0378; J3480